=== PATIENT | male | born 1965 ===

== ENCOUNTER 2023-05-22 09:58 | Emergency (ER) | payer OTHER, SELFPAY ==
--- NOTE | ~2023-05-22 | CT_ITS ---
EXAMINATION: CT ABDOMEN AND PELVIS WITH CONTRAST CLINICAL INFORMATION: Right upper quadrant pain. COMPARISON: None available. TECHNIQUE: Multidetector volumetric images were obtained from the superior aspect of the liver through the pubic symphysis following administration 85 mL of Omnipaque 350 intravenous contrast. Sagittal and coronal reformatted images were obtained on the technologist's workstation. Oral contrast: No This CT examination was performed using dose optimization techniques as appropriate, variously including the following: *Automated exposure control *Adjustment of mA and/or kV according to patient size (this includes techniques or standardized protocols for targeted exams where dose is matched to indication/reason for exam; i.e. extremities or head) *Use of iterative reconstruction technique DLP: 866 mGy-cm FINDINGS: LUNG BASES: The visualized lung bases are unremarkable. LIVER, GALLBLADDER, AND BILIARY TREE: There are subcentimeter hypodensity right lobe the liver too small to characterize but likely a small cyst. There is no intrahepatic biliary duct dilatation. The gallbladder is unremarkable with no evidence of radiopaque gallstones, gallbladder wall thickening, or obvious pericholecystic inflammatory changes. PANCREAS: Mild infiltrative change at the head of the pancreas. SPLEEN: Unremarkable. ADRENAL GLANDS: Unremarkable. KIDNEYS AND URETERS: The kidneys are normal in size, shape, and attenuation. No hydronephrosis, hydroureter, or calculi seen. No perinephric stranding. BLADDER: Unremarkable. GASTROINTESTINAL TRACT: The small and large bowel are unremarkable. The appendix is unremarkable. ABDOMINAL WALL: There are small umbilical and supraumbilical hernias containing fat. LYMPH NODES: Normal. VASCULAR: Unremarkable. PELVIC VISCERA: Unremarkable. OSSEOUS STRUCTURES: There is diffuse mild to moderate thoracolumbar disc degenerative change. CT/CT abdomen pelvis w IV con IMPRESSION: Mild infiltrative change at the head of the pancreas. Consider a mild pancreatitis and less likely duodenitis. Small umbilical and supraumbilical hernias containing fat. Fleischner guidelines were followed.
--- NOTE | ~2023-05-22 | US_ITS ---
EXAMINATION: US ABDOMEN LIMITED CLINICAL INFORMATION: Right upper quadrant.. COMPARISON: CT abdomen pelvis earlier today at about 5:30 TECHNIQUE: Real-time imaging of the right upper quadrant abdominal viscera. FINDINGS: PANCREAS: Pancreas could not be seen as it was obscured by bowel LIVER: The liver is normal in size. The liver contour is normal. Parenchymal echogenicity is normal. No focal hepatic lesion. There is no intrahepatic biliary duct dilatation seen. GALLBLADDER: The gallbladder is physiologically distended without evidence of stones, sludge, polyps, wall thickening or pericholecystic fluid. COMMON BILE DUCT: Normal in caliber measuring 0.5 cm in diameter. RIGHT KIDNEY: Normal. No hydronephrosis. No renal calculi or focal parenchymal lesions. The kidney measures 11.3 cm in maximum dimension. FREE FLUID: None. US/US abdomen limited IMPRESSION: No abnormality is detected. The pancreas could not be visualized. The edematous pancreatic head with surrounding inflammation seen on the CT scan performed earlier today cannot be evaluated on this exam secondary to overlying bowel gas.
[2023-05-22 10:05] VITALS: BP 132/88; PULSE 77; RESP 18; TEMP 36.6; O2SAT 97; BMI 38.1
[2023-05-22 10:17] LABS: MANUAL DIFF FLAG NO
[2023-05-22 10:22] LABS: Basophils Percent Auto 0.3 % (0-2); Eosinophils Absolute Auto 0.1 X10*3/uL (0.0-0.4); Eosinophils Percent Auto 0.8 % (0-4); Hemoglobin 14.3 g/dl (14.0-18.0); Imm Gran Abs Auto 0.08 X10*3/uL (0.00-0.03); Imm Gran Pct Auto 0.7 % (0.0-0.4); Lymphocytes Absolute Auto 1.3 X10*3/uL (1.2-4.9); Lymphocytes Percent Auto 11.9 % (20-40); Mean Corpuscular HGB Conc 32.5 g/dl (31.0-36.0); Mean Corpuscular Hemoglobin 29.1 pg (27.0-33.0); Mean Corpuscular Volume 89.6 fL (80.0-98.0); Mean Platelet Volume 8.9 fL (9.4-12.4); Monocytes Absolute Auto 0.8 X10*3/uL (0.1-1.2); Monocytes Percent Auto 6.9 % (2-11); Neutrophils Absolute Auto 8.8 x10*3/uL (2.0-8.3); Neutrophils Percent Auto 79.4 % (45-73); Platelet Count 244 X10*3/uL (160-400); Red Blood Count 4.91 X10*6/uL (4.60-5.80); Red Cell Distribution Width 13.3 % (11.0-16.0); White Blood Count 11.1 X10*3/uL (4.8-10.8)
[2023-05-22 10:43] LABS: Alanine Aminotransferase 21 U/L (0-40); Alkaline Phosphatase 64 U/L (39-117); Anion Gap 11 (12-20); Aspartate Amino Transferase 20 U/L (5-37); Bilirubin Direct 0.1 mg/dL (0.0-0.5); Bilirubin Total 0.3 mg/dL (0.0-1.0); Blood Urea Nitrogen 12 mg/dL (9-16); Calcium 9.5 mg/dL (8.4-10.2); Carbon Dioxide 30 mmol/L (22-29); Chloride 103 mmol/L (96-108); Creatinine Clr Calc Pharmacy 107.1; Estimated Glomerular Filt Rate > 60; Glucose Random 96 mg/dL (60-115); Lipase 25 U/L (8-78); Potassium 3.7 mmol/L (3.3-5.1); Sodium 140 mmol/L (135-145); Total Protein 7.7 g/dL (6.5-8.0)
--- NOTE | 2023-05-22 16:06 | ED.ABDPAIN ---
HPI - Abdominal Pain General Chief Complaint: Abdominal Pain Stated Complaint: Abd pain Time Seen by Provider: 05/22/23 16:03 Source: patient Mode of arrival: ambulatory Limitations: no limitations History of Present Illness HPI narrative: Patient is a 58-year-old male presents emergency department for evaluation of abdominal pain. Onset was 3 days ago initially in the periumbilical region and it was intermittent in nature. Since yesterday evening it has increased in intensity, it is now localized to the right upper quadrant and is constant. He is prescribed oxycodone for chronic pain which has not alleviated the abdominal pain. There is no associated fevers, chills, nausea, vomiting, diarrhea, constipation. Denies chest pain, shortness of breath, difficulty breathing. Patient has a history of prostate cancer s/p prostatectomy in [address] [facility] at [facility] Dr. 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 Related Data Allergies Allergy/AdvReac Type Severity Reaction Status Date / Time No Known Allergies Allergy Verified 05/22/23 10:05 Review of Systems Review of Systems Constitutional : No Weight loss, No Fever, No Chills ENT/Mouth :? No sore throat, No Rhinorrhea Eyes: No Swelling, No Redness Cardiovascular : No Chest Pain, No SOB, No Edema Respiratory : No Cough, No Sputum, No Wheezing Gastrointestinal : No Nausea, no Vomiting, no Diarrhea, positive abdominal pain, No Hematochezia, No Melena Genitourinary : No Dysuria, No Urinary Frequency, No Hematuria, No Urgency? Musculoskeletal : No joint pain, No Myalgias, No Joint Swelling Skin : No Skin Lesions, No rash Neuro : No Weakness, No Numbness, No Dizziness, No Headache Psych : No Anxiety/Panic, No Depression Heme/Lymph: No Bruising, No Lymphadenopathy Endocrine : No Polyuria, No Polydipsia Yes all other systems are reviewed and are negative PMFSH Past Medical History Attestation statement: The following information was validated with the patient. Source: old records reviewed Social History Social History Smoked in Last 30 Days: No Use of substances other than those prescribed or required for medical reasons: No Advance Directives: No Advance Directives Information Provided: Yes Physical Exam ED Vital Signs: Vital Signs - 24 hr 05/22/23 10:05 05/22/23 16:31 05/22/23 19:00 Temperature 98 F 98.1 F 98.3 F Pulse Rate 77 79 80 Respiratory Rate 18 16 17 Blood Pressure 132/88 117/70 151/92 H Pulse Oximetry 97 94 97 Oxygen Delivery Method Room Air Room Air Room Air 05/22/23 20:41 05/22/23 20:46 Temperature 98.0 F Pulse Rate 78 Respiratory Rate 17 17 Blood Pressure 125/69 Pulse Oximetry 97 Oxygen Delivery Method Room Air BMI result Body Mass Index 38.1 Appearance: Alert.?Oriented to person, place and time. No acute distress.?Normal affect. Eyes: Pupils equal, round and reactive to light.? ENT: Pharynx normal.?? Neck: Normal inspection.? Neck supple.?? CVS: Heart sounds normal. Normal heart rate and rhythm.? Pulses normal.?? Respiratory: No respiratory distress.? Lung sounds clear to auscultation bilaterally?? Abdomen: Soft with mild right upper quadrant/ epigastric tenderness upon palpation. Negative Bishop sign. No rigidity. No guarding. Normoactive bowel sounds. No pulsatile mass.?? Skin: Skin warm and dry.? Normal skin color.?? Extremities: No lower extremity edema.? No calf ttp? Neuro: Moves all extremities spontaneously. Sensation intact bilaterally. . No focal neuro deficits. Ambulates with normal steady gait. Course Reevaluation(s) Reevaluation #1: CBC reveals a mild leukocytosis 11.1, patient did not CMP is overall unremarkable, lipase is within normal limits. Urinalysis without signs of infection or microscopic hematuria. CT of the abdomen and pelvis indicating mild infiltrative changes at the head of the pancreas, likely a mild pancreatitis. Denies EtOH usage. At this time will obtain ultrasound for further evaluation of biliary etiology in addition to lipid panel a potential hypertriglyceridemia. Pain has resolved with IV ketorolac. Time: 18:51 Reevaluation #2: Ultrasound revealing no acute abnormality, pancreas not well visualized due to overlying bowel gas. LFTs are normal, lipase is within normal limits, triglycerides are normal. Pain has resolved at this time. He is tolerating oral intake. At this time feel it is appropriate for discharge, mild pancreatitis, outpatient follow-up with primary care provider, reviewed worrisome signs and symptoms that would warrant re-evaluation in the emergency department. All questions were answered. We did discuss potential adverse reaction from medication including, Mounjaro. Reviewed this case with ED attending Dr. Márquez who agrees with plan of care for discharge in outpatient follow-up at this time Time: 21:55 Medical Decision Making Medical Decision Making [facility] Narrative: Patient is a 58-year-old male with past medical history of hypertension, hyperlipidemia, obesity, prostate cancer as per HPI, presenting to emergency department for evaluation of abdominal pain. At the time of my examination he is overall well-appearing. He is nontoxic, afebrile. Abdominal examination is notable for mild tenderness upon palpation in the right upper quadrant, does not appear consistent at this time with acute abdomen. Will obtain CBC to evaluate for leukocytosis/ anemia, CMP and lipase to evaluate for abnormal electrolytes /abnormal renal function/ abnormal hepatic/biliary function, CT AP, and Urinalysis. Will trial Toradol for pain at this time. Differential Diagnosis Differential Diagnoses: The differential diagnosis associated with the presentation includes (Gastritis, GERD, PUD, cholecystitis, cholelithiasis, pancreatitis, obstruction, diverticulitis, appendicitis) Admission/Observation Consideration of admission/observation: Escalation of care including admission/observation considered (I considered admission for abdominal pain, see course narrative for further detail) Lab Data [facility] Lab Attestation statement: I reviewed the patient's lab results. (See course narrative for further detail) 05/22/23 10:13 05/22/23 10:13 Labs: Lab Results 05/22/23 05/22/23 05/22/23 Range/Units 10:13 10:13 16:04 WBC 11.1 H (4.8-10.8) X10*3/uL RBC 4.91 (4.60-5.80) X10*6/uL Hgb 14.3 (14.0-18.0) g/dl Hct 44.0 (42.0-52.0) % MCV 89.6 (80.0-98.0) fL MCH 29.1 (27.0-33.0) pg MCHC 32.5 (31.0-36.0) g/dl RDW 13.3 (11.0-16.0) % Plt Count 244 (160-400) X10*3/uL MPV 8.9 L (9.4-12.4) fL Immature Gran % (Auto) 0.7 H (0.0-0.4) % Neut % (Auto) 79.4 H (45-73) % Lymph % (Auto) 11.9 L (20-40) % [place] % (Auto) 6.9 (2-11) % Eos % (Auto) 0.8 (0-4) % Baso % (Auto) 0.3 (0-2) % Lymph # (Auto) 1.3 (1.2-4.9) X10*3/uL [place] # (Auto) 0.8 (0.1-1.2) X10*3/uL Eos # (Auto) 0.1 (0.0-0.4) X10*3/uL Baso # (Auto) 0.0 (0.0-0.2) X10*3/uL Abs Immat Gran (auto) 0.08 H (0.00-0.03) X10*3/uL Absolute Neuts (auto) 8.8 H (2.0-8.3) x10*3/uL Absolute Nucleated RBC 0.000 (0.0-0.012) X10*3/uL Nucleated RBC % (auto) 0.0 (0.0-0.2) /100WBC Sodium 140 (135-145) mmol/L Potassium 3.7 (3.3-5.1) mmol/L Chloride 103 (96-108) mmol/L Carbon Dioxide 30 H (22-29) mmol/L Anion Gap 11 L (12-20) BUN 12 (9-16) mg/dL Creatinine 0.93 (0.5-1.4) mg/dL Estim Creat Clear Calc 107.1 Estimated GFR > 60 Random Glucose 96 (60-115) mg/dL Calcium 9.5 (8.4-10.2) mg/dL Total Bilirubin 0.3 (0.0-1.0) mg/dL Direct Bilirubin 0.1 (0.0-0.5) mg/dL AST 20 (5-37) U/L ALT 21 (0-40) U/L Alkaline Phosphatase 64 (39-117) U/L Total Protein 7.7 (6.5-8.0) g/dL Albumin 4.0 (3.5-5.0) g/dL Triglycerides 70 mg/dL Cholesterol 169 mg/dL LDL Cholesterol, Calc 106 mg/dl HDL Cholesterol 49 mg/dL Lipase 25 (8-78) U/L Urine Color Yellow Urine Appearance Clear Urine pH 7.5 (5.0-9.0) Ur Specific [place] 1.015 (1.005-1.025) Urine Protein Negative (Neg-Trace) mg/dL Urine Glucose (UA) Negative (Negative) mg/dL Urine Ketones Negative (Negative) mg/dL Urine Blood Negative (Negative) Urine Nitrite Negative (Negative) Ur Leukocyte Esterase Negative (Negative) Radiology Impression Discussion of test interpretation with radiology: I have reviewed the radiologist's reading. Radiologist Impression: CT/CT abdomen pelvis w IV con IMPRESSION: Mild infiltrative change at the head of the pancreas. Consider a mild pancreatitis and less likely duodenitis. ? Small umbilical and supraumbilical hernias containing fat.? XR/XR chest 2V IMPRESSION: No active cardiopulmonary disease. US/US abdomen limited IMPRESSION: No abnormality is detected. The pancreas could not be visualized. The edematous pancreatic head with surrounding inflammation seen on the CT scan performed earlier today cannot be evaluated on this exam secondary to overlying bowel gas. Independent Historian Clinical information obtained from an independent historian. History obtained from or confirmed by: Spouse (Patient's who confirms history) Prescription Management I considered prescription management with: Pain Medication (OTC acetaminophen/ibuprofen) and Other (Considered an antiemetic, patient declines) Chronic Conditions Patient?s care impacted by: Cancer Medications Administered Discontinued Medications Generic Name Dose Route Start Last Admin Trade Name Freq PRN Reason Stop Dose Admin Sodium Chloride 1,000 mls @ 999 mls/hr 05/22/23 16:30 05/22/23 19:38 Ns IV 05/22/23 17:30 Infused .Q1H1M GENE Infusion Iohexol 85 ml 05/22/23 17:34 05/22/23 17:34 Iohexol 350 Mg/Ml 100 Ml Infus..Btl IV 05/22/23 17:35 85 ml ONCE ONE Administration Ketorolac Tromethamine 30 mg 05/22/23 16:29 05/22/23 16:52 Ketorolac Tromethamine 30 Mg/Ml Vial IVPUSH 05/22/23 16:30 30 mg ONCE ONE Administration Discharge Plan Discharge Clinical Impression: Pancreatitis Patient Disposition: Home, Self-Care Instructions: Pancreatitis (ED) Additional Instructions: As discussed, your blood work today was overall normal. Your CT imaging is concerning for mild pancreatitis. Please be sure to stay well hydrated, You can take ibuprofen 200 mg, 3 tablets (600mg) every 6-8 hours as needed for pain, in addition to Tylenol 500 mg, 2 tablets (1,000mg) every 4-6 hours as needed for pain, but not to exceed 3 doses daily (3,000mg).? Contact your primary care provider to arrange for a follow-up visit within 1-3 days. Return back to emergency department with any new or worsening symptoms or concerns. Referrals: Physician,Unknown J [Primary Care Provider] - Interventions: ED Discharge Assessment Last Done: 05/22/23 22:03 Discharge Date/Time: 05/22/23 22:04
[2023-05-22 16:14] LABS: Appearance Urine Clear; Color Urine Yellow; Glucose Urine UA Negative (Negative); Leukocyte Esterase Urine Negative (Negative); Nitrite Urine Negative (Negative); PH 7.5 (5.0-9.0); Specific Gravity - Urine 1.015 (1.005-1.025); Urine Blood Negative (Negative); Urine Ketones Negative (Negative); Urine Protein Negative (Neg-Trace)
[2023-05-22 16:31] VITALS: BP 117/70; PULSE 79; RESP 16; TEMP 36.7; O2SAT 94
--- NOTE | 2023-05-22 16:38 | PC.NURSE ---
Pt stated he started having a slight pain around his belly button off and on. But last night around 1AM it moved to the RUQ and kristal to 10/10. Call cedeño with in reach. lights dimmed.
[2023-05-22] MEDS: 0.9 % Sodium Chloride 1,000 ML 999 ML IV (16:51)
[2023-05-22] MEDS: Ketorolac Tromethamine 30 MG/ML VIAL IVPUSH (16:52)
[2023-05-22] MEDS: iohexoL 350 MG/ML 100 ML INFUS..BTL 85 ML IV (17:34)
[2023-05-22 19:00] VITALS: BP 151/92; PULSE 80; RESP 17; TEMP 36.8; O2SAT 97
[2023-05-22 20:41] VITALS: RESP 17
[2023-05-22 20:46] VITALS: BP 125/69; PULSE 78; RESP 17; TEMP 36.7; O2SAT 97
[2023-05-22 21:29] LABS: Cholesterol 169 mg/dL; HDL Cholesterol 49 mg/dL; LDL Cholesterol Calculated 106 mg/dl; Triglycerides 70 mg/dL
== END 2023-05-22 22:04 | disposition home or self-care (01) ==
PROVIDERS: Nurse Practitioner Family; Emergency Provider Student in an Organized Health Care Education/Training Program
DX: K85.90 Acute pancreatitis without necrosis or infection, unspecified (principal); R10.11 Right upper quadrant pain; I10 Essential (primary) hypertension; E78.5 Hyperlipidemia, unspecified; G89.4 Chronic pain syndrome; Z79.891 Long term (current) use of opiate analgesic; C61 Malignant neoplasm of prostate; C79.89 Secondary malignant neoplasm of other specified sites; C79.51 Secondary malignant neoplasm of bone; Z79.890 Hormone replacement therapy; D72.829 Elevated white blood cell count, unspecified
CPT/HCPCS: 36415; 74177; 76705; 80048; 80061; 80076; 81003; 83690; 85025; 96361; 96374; 99284; 99285; J1885; Q9967

== ENCOUNTER 2023-07-16 13:49 | Emergency (ER) | payer OTHER, MEDICARE, SELFPAY ==
[2023-07-16 14:49] VITALS: BP 171/78; PULSE 76; RESP 16; TEMP 36; O2SAT 95; BMI 38.6
--- NOTE | 2023-07-16 14:49 | ED.GENADULT ---
HPI - General Adult General Chief complaint: Extremity Problem Stated complaint: l leg pain Time Seen by Provider: 07/16/23 18:37 Related Data Previous Rx's Medication Instructions Recorded oxycodone 5 mg capsule 5 mg PO Q8H PRN pain 3 days #9 caps 07/16/23 Allergies Allergy/AdvReac Type Severity Reaction Status Date / Time No Known Allergies Allergy Verified 07/16/23 14:49 PMFSH Social History Social History Smoked in Last 30 Days: No Use of substances other than those prescribed or required for medical reasons: No Advance Directives: Yes Advance Directives Information Provided: No Advance Directives on File: No Physical Exam ED Vital Signs: Vital Signs - 24 hr 07/16/23 14:49 07/16/23 19:48 Temperature 96.8 F 97.2 F Pulse Rate 76 73 Respiratory Rate 16 16 Blood Pressure 171/78 H 152/89 H Pulse Oximetry 95 97 Oxygen Delivery Method Room Air Room Air BMI result Body Mass Index 38.6 Course Course Course Narrative: RME performed by Dodie Monk PA-C. Patient is a 58 year old assigned male at presenting to the emergency department with low back pain that radiates down his left leg. Patient has a history of recent cancer diagnosis for which he starts radiation tomorrow. Patient states that he was told then he had a spot on his left hip and in his lumbar spine. Labs ordered. Patient placed back in the waiting room pending room availability and results. Patient dispositioned by Dr. Almanza. Please refer to Dr. Almanza's note from 07/16/2023 for more information. Medications Administered Discontinued Medications Generic Name Dose Route Start Last Admin Trade Name Freq PRN Reason Stop Dose Admin Dexamethasone Sodium Phosphate 6 mg 07/16/23 19:22 07/16/23 19:52 Dexamethasone Sod Phosphate 4 Mg/Ml Vial IVPUSH 07/16/23 19:23 6 mg ONCE ONE Administration Medical Decision Making Lab Data 07/16/23 15:37 07/16/23 15:37 Labs: Lab Results 07/16/23 Range/Units 15:37 WBC 8.2 (4.8-10.8) X10*3/uL RBC 4.85 (4.60-5.80) X10*6/uL Hgb 14.1 (14.0-18.0) g/dl Hct 43.0 (42.0-52.0) % MCV 88.7 (80.0-98.0) fL MCH 29.1 (27.0-33.0) pg MCHC 32.8 (31.0-36.0) g/dl RDW 13.6 (11.0-16.0) % Plt Count 251 (160-400) X10*3/uL MPV 8.9 L (9.4-12.4) fL Immature Gran % (Auto) 0.5 H (0.0-0.4) % Neut % (Auto) 71.9 (45-73) % Lymph % (Auto) 18.3 L (20-40) % [place] % (Auto) 7.7 (2-11) % Eos % (Auto) 1.2 (0-4) % Baso % (Auto) 0.4 (0-2) % Lymph # (Auto) 1.5 (1.2-4.9) X10*3/uL [place] # (Auto) 0.6 (0.1-1.2) X10*3/uL Eos # (Auto) 0.1 (0.0-0.4) X10*3/uL Baso # (Auto) 0.0 (0.0-0.2) X10*3/uL Abs Immat Gran (auto) 0.04 H (0.00-0.03) X10*3/uL Absolute Neuts (auto) 5.9 (2.0-8.3) x10*3/uL Absolute Nucleated RBC 0.000 (0.0-0.012) X10*3/uL Nucleated RBC % (auto) 0.0 (0.0-0.2) /100WBC Sodium 140 (135-145) mmol/L Potassium 4.0 (3.3-5.1) mmol/L Chloride 104 (96-108) mmol/L Carbon Dioxide 25 (22-29) mmol/L Anion Gap 15 (12-20) BUN 14 (9-16) mg/dL Creatinine 0.82 (0.5-1.4) mg/dL Estim Creat Clear Calc 122.4 Estimated GFR > 60 Random Glucose 88 (60-115) mg/dL Calcium 10.0 (8.4-10.2) mg/dL Magnesium 2.3 (1.6-2.6) mg/dL Total Bilirubin 0.2 (0.0-1.0) mg/dL AST 23 (5-37) U/L ALT 21 (0-40) U/L Alkaline Phosphatase 62 (39-117) U/L Total Protein 7.3 (6.5-8.0) g/dL Albumin 4.1 (3.5-5.0) g/dL Discharge Plan Discharge Clinical Impression: Back pain Patient Disposition: Home, Self-Care Instructions: Back Pain (ED) Additional Instructions: Back pain and left leg numbness due to prostate metastases to your lumbar spine. Recommend to keep your appointment with your oncologist for radiation tomorrow. Return to the ED immediately for urinary/bowel incontinence, paralysis of lower extremities, fever, chills, inability to walk, severe back pain or any other concerning symptoms. Continue taking your oxycodone pain meds at home for pain. Prescriptions: New oxycodone 5 mg capsule 5 mg PO Q8H PRN (Reason: pain) 3 Days Qty: 9 0RF Rx Instructions: Partial Fill upon patient request. Interventions: ED Discharge Assessment Last Done: 07/16/23 20:06 Discharge Date/Time: 07/16/23 20:06 Print Language: Nigerien
--- NOTE | 2023-07-16 19:23 | ED.GENADULT ---
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 Patient was referred to the ED by oncologist to evaluate for pinched nerve. Patient starting radiation tomorrow for prostate CA and prosate CA going to the spine.. Patient denies any urinary/bowel incontinence. Patient states any fever or chills. Patient denies any abdominal pain, nausea, dysuria, hematuria, or vomiting. Related Data Previous Rx's Medication Instructions Recorded oxycodone 5 mg capsule 5 mg PO Q8H PRN pain 3 days #9 caps 07/16/23 Allergies Allergy/AdvReac Type Severity Reaction Status Date / Time No Known Allergies Allergy Verified 07/16/23 14:49 Review of Systems Review of Systems: Left leg numbness. Back pain Yes all other systems are reviewed and are negative [facility] Social History Social History Smoked in Last 30 Days: No Use of substances other than those prescribed or required for medical reasons: No Advance Directives: Yes Advance Directives Information Provided: No Advance Directives on File: No Physical Exam ED Vital Signs: Vital Signs - 24 hr 07/16/23 14:49 Temperature 96.8 F Pulse Rate 76 Respiratory Rate 16 Blood Pressure 171/78 H Pulse Oximetry 95 Oxygen Delivery Method Room Air BMI result Body Mass Index 38.6 Const General: cooperative, healthy appearing, comfortable, no acute distress, well developed, alert and awake Orientation/consciousness: oriented to person, oriented to place, oriented to time and patient oriented x3 HENMT Head: Yes normal to inspection, Yes No palpable skull fracture present, Yes normocephalic, Yes atraumatic and No abrasion Eyes General: appearance normal, both eyes and all related structures Neck Neck: Yes normal visual inspection, Yes full ROM, Yes no lymphadenopathy, Yes no meningeal signs, Yes trachea midline, Yes supple, No anterior neck swelling and No tender Chest Chest palpation & inspection: normal inspection of the chest and normal palpation of entire chest wall Resp Effort & Inspection: normal respiratory effort and able to speak in complete sentences Cardio Jugular venous distension: no JVD Heart sounds: S1 normal heart sound present and S2 normal heart sound present GI Inspection: Yes normal to inspection and No abdominal wall ecchymosis Palpation (GI): Soft to palpation, not firm, nontender, no guarding and not rigid General: No CVA tenderness and Yes no CVA tenderness Back/Spine/Pelvis Back: no CVA tenderness, No CVA tenderness and No back tenderness Skin General skin exam: no rashes or lesions noted and elasticity normal Neuro General: oriented to person, oriented to place, oriented to time, patient oriented x3, gait normal, tone normal, moves all extremities, Normal light touch and pain sensation, no meningeal signs, no focal motor deficits, CN's II-XI intact bilaterally and normal sensation to monofilament Extrem Other: Bilateral lower extremities negative for swelling, pitting edema, calf tenderness, or ecchymosis. Bilateral Babinski test negative. Neuro exam bilaterally equal. Bilateral complete range of motion of lower extremities. Strength of right lower extremity 5+. Strength of left lower extremity 4.5. Rectal exam shows great strength. Negative for saddle anesthesia. General: Yes normal to inspection and Yes full ROM Psych Appearance: grossly normal, well kempt and not disheveled Medications Administered Discontinued Medications Generic Name Dose Route Start Last Admin Trade Name Freq PRN Reason Stop Dose Admin Dexamethasone Sodium Phosphate 6 mg 07/16/23 19:22 07/16/23 19:52 Dexamethasone Sod Phosphate 4 Mg/Ml Vial IVPUSH 07/16/23 19:23 6 mg ONCE ONE Administration Medical Decision Making Medical Decision Making [facility] Narrative: 58-year-old male presents to ED for back pain left leg numbness. Patient history of prostate cancer Mets to lumbar spine. Patient start radiation tomorrow. Physical exam negative for Babinski sign. Negative for saddle anesthesia. Patient has good rectal tone. Not suspecting stroke. Negative facial droop slurred speech, paralysis of extremities, pronator drift, or loss of vision. Bilateral lower extremity strength nearly equal. Motor/neuro/vascular exam intact. Not concerned for cauda equinus syndrome or spinal epidural abscess. Symptoms most likely due to cancer of the spine. Case discussed with Dr. Almanza who agrees with plan and does not recommend any further imaging. Patient was give 1 dose of Decadron. No indication for MRI. Differential Diagnosis Differential Diagnoses: The differential diagnosis associated with the presentation includes (Prostate Cancer to the spine. caudina equina syndrome, spinal epidural abscess) Admission/Observation Consideration of admission/observation: Escalation of care including admission/observation considered Lab Data MDM Lab Attestation statement: I reviewed the patient's lab results. 07/16/23 15:37 07/16/23 15:37 Labs: Lab Results 07/16/23 Range/Units 15:37 WBC 8.2 (4.8-10.8) X10*3/uL RBC 4.85 (4.60-5.80) X10*6/uL Hgb 14.1 (14.0-18.0) g/dl Hct 43.0 (42.0-52.0) % MCV 88.7 (80.0-98.0) fL MCH 29.1 (27.0-33.0) pg MCHC 32.8 (31.0-36.0) g/dl RDW 13.6 (11.0-16.0) % Plt Count 251 (160-400) X10*3/uL MPV 8.9 L (9.4-12.4) fL Immature Gran % (Auto) 0.5 H (0.0-0.4) % Neut % (Auto) 71.9 (45-73) % Lymph % (Auto) 18.3 L (20-40) % Navarro % (Auto) 7.7 (2-11) % Eos % (Auto) 1.2 (0-4) % Baso % (Auto) 0.4 (0-2) % Lymph # (Auto) 1.5 (1.2-4.9) X10*3/uL Navarro # (Auto) 0.6 (0.1-1.2) X10*3/uL Eos # (Auto) 0.1 (0.0-0.4) X10*3/uL Baso # (Auto) 0.0 (0.0-0.2) X10*3/uL Abs Immat Gran (auto) 0.04 H (0.00-0.03) X10*3/uL Absolute Neuts (auto) 5.9 (2.0-8.3) x10*3/uL Absolute Nucleated RBC 0.000 (0.0-0.012) X10*3/uL Nucleated RBC % (auto) 0.0 (0.0-0.2) /100WBC Sodium 140 (135-145) mmol/L Potassium 4.0 (3.3-5.1) mmol/L Chloride 104 (96-108) mmol/L Carbon Dioxide 25 (22-29) mmol/L Anion Gap 15 (12-20) BUN 14 (9-16) mg/dL Creatinine 0.82 (0.5-1.4) mg/dL Estim Creat Clear Calc 122.4 Estimated GFR > 60 Random Glucose 88 (60-115) mg/dL Calcium 10.0 (8.4-10.2) mg/dL Magnesium 2.3 (1.6-2.6) mg/dL Total Bilirubin 0.2 (0.0-1.0) mg/dL AST 23 (5-37) U/L ALT 21 (0-40) U/L Alkaline Phosphatase 62 (39-117) U/L Total Protein 7.3 (6.5-8.0) g/dL Albumin 4.1 (3.5-5.0) g/dL External Record Review External record reviewed: Other (prior ED visit) Chronic Conditions Patient?s care impacted by: Cancer (prostate) Discharge Plan Discharge Clinical Impression: Back pain Patient Disposition: Home, Self-Care Instructions: Back Pain (ED) Additional Instructions: Back pain and left leg numbness due to prostate metastases to your lumbar spine. Recommend to keep your appointment with your oncologist for radiation tomorrow. Return to the ED immediately for urinary/bowel incontinence, paralysis of lower extremities, fever, chills, inability to walk, severe back pain or any other concerning symptoms. Continue taking your oxycodone pain meds at home for pain. Prescriptions: New oxycodone 5 mg capsule 5 mg PO Q8H PRN (Reason: pain) 3 Days Qty: 9 0RF Rx Instructions: Partial Fill upon patient request. Interventions: ED Discharge Assessment Last Done: 07/16/23 20:06 Discharge Date/Time: 07/16/23 20:06 Print Language: Urdu
[2023-07-16 19:48] VITALS: BP 152/89; PULSE 73; RESP 16; TEMP 36.2; O2SAT 97
--- NOTE | 2023-07-16 20:01 | PC.NURSE ---
Pt a&o, no sob or chest pain, medicated per mar, Reviewed discharge instructions with pt, pt verbalized understanding.
--- NOTE | 2023-07-16 20:05 | PC.NURSE ---
At discharge pt neuro intact and pt ambulating with a steady gait.
== END 2023-07-16 20:06 | disposition home or self-care (01) ==
PROVIDERS: Emergency Provider Internal Medicine; PCP Internal Medicine
DX: G89.3 Neoplasm related pain (acute) (chronic) (principal); C61 Malignant neoplasm of prostate; C79.51 Secondary malignant neoplasm of bone; M54.50 Low back pain, unspecified; M79.605 Pain in left leg
CPT/HCPCS: 36415; 80053; 83735; 85025; 99283; 99284; J1100

== ENCOUNTER 2023-07-28 15:04 | Emergency (ER) | payer OTHER, MEDICARE, SELFPAY ==
--- NOTE | ~2023-07-28 | XR_ITS ---
EXAMINATION: XR LUMBOSACRAL SPINE CLINICAL INFORMATION: Pain. COMPARISON: CT abdomen/pelvis 05/22/2023. TECHNIQUE: Three views of the lumbosacral spine. FINDINGS: No evidence of acute compression deformity or traumatic subluxation. Severe intervertebral disc height loss at L5-S1. Moderate intervertebral disc height loss at L4-L5. Moderate facet arthropathy spanning L4-S1 with neural foraminal encroachment and central canal stenosis. SI joints are symmetric. Pubic symphysis is maintained. No significant paraspinal soft tissue abnormality. XR/XR lumbar spine 2-3V IMPRESSION: 1. No acute compression deformity or malalignment. 2. Moderate to severe lower lumbar spondylosis, more prominent at L5-S1.
[2023-07-28 15:43] VITALS: BP 150/94; PULSE 89; RESP 18; TEMP 36.8; O2SAT 93; BMI 55.6
[2023-07-28 17:28] VITALS: BP 180/99; PULSE 78; RESP 20; TEMP 35.9; O2SAT 94
--- NOTE | 2023-07-28 17:28 | ED_ITS ---
HPI - General Adult General Chief complaint: Extremity Injury, Lower Stated complaint: Numbness & pain in left leg Time Seen by Provider: 07/28/23 20:39 Source: patient, RN notes reviewed and old records reviewed Mode of arrival: ambulatory Limitations: no limitations History of Present Illness HPI narrative: 58-year-old male with past medical history significant for chronic back pain presents for evaluation of left lower back pain that radiates to his right leg patient reports he has previous lumbar surgery performed at [facility] years ago he reports for last few weeks he has had worsening left lower back pain which is chronic but now he has pain radiating to his left leg with associated numbness and tingling he reports that the numbness is mostly to his left medial thigh going down to about the front of his left knee the patient is able to ambulate but feels that his left leg is slightly weaker than usual he denies any bladder or bowel incontinence he was seen here 8 days ago for lower back pain and was given a dose of dexamethasone 6 mg IV and then discharged with oxycodone Related Data Previous Rx's Medication Instructions Recorded oxycodone 5 mg capsule 5 mg PO Q8H PRN pain 3 days #9 caps 07/16/23 cyclobenzaprine 10 mg tablet 10 mg PO TID PRN muscle spasm #15 07/28/23 tabs dexamethasone 4 mg tablet 4 mg PO BID #6 tabs 07/28/23 Allergies Allergy/AdvReac Type Severity Reaction Status Date / Time No Known Allergies Allergy Verified 07/28/23 15:48 Review of Systems 2 Constitutional: Constitutional: Denies chills and Denies fever(s) Eyes: Eyes: Denies blurry vision Cardiovascular: Cardiovascular: Denies chest pain and Denies dyspnea Respiratory: Respiratory: Denies cough and Denies dyspnea Gastrointestinal: Gastrointestinal: Denies abdominal pain, Denies nausea and Denies vomiting Musculoskeletal: Musculoskeletal: Reports back pain, Reports numbness, Reports radiating pain into limb and Reports tingling Neurologic: Reports numbness and Reports tingling PMFSH Social History Social History Smoked in Last 30 Days: No Use of substances other than those prescribed or required for medical reasons: No Advance Directives: No Advance Directives Information Provided: Yes Physical Exam ED Vital Signs: Vital Signs - 24 hr 07/28/23 15:43 07/28/23 17:28 07/28/23 17:48 Temperature 98.2 F 96.7 F L 98.2 F Pulse Rate 89 78 75 Respiratory Rate 18 20 18 Blood Pressure 150/94 H 180/99 H 138/81 Pulse Oximetry 93 94 94 Oxygen Delivery Method Room Air Room Air Room Air 07/28/23 20:07 Temperature 97.4 F Pulse Rate 69 Respiratory Rate 16 Blood Pressure 137/81 Pulse Oximetry 96 Oxygen Delivery Method Room Air BMI result Body Mass Index 55.6 Const General: healthy appearing, comfortable, no acute distress, alert and awake Nutritional Appearance: well nourished Orientation/consciousness: patient oriented x3 HENMT Head: Yes normocephalic and Yes atraumatic Eyes Eyelids: Yes eyelids normal Conjunctivae: conjunctivae normal Sclerae: sclerae normal Corneas: corneas normal Pupils: Equal, round and reactive pupils present EOM: EOMs intact bilaterally Neck Neck: Yes full ROM Resp Effort & Inspection: normal respiratory effort, able to speak in complete sentences and not labored Cardio Rate: regular rate Rhythm: regular rhythm GI Inspection: No distended Palpation (GI): Soft to palpation, not firm, nontender, no guarding and not rigid Skin General skin exam: elasticity normal Neuro General: patient oriented x3 Cranial nerves: Yes Equal, round and reactive pupils present and Yes Bilaterally intact EOM present Cognition (Neuro): normal cognition Motor exam (neuro): 5/5 motor strength present throughout, Normal motor muscle tone present throughout and Motor abnormalities not present Extrem Other: Moving all extremities well without any obvious deformities Course Course Course Narrative: This is a rapid medical exam: Additional HPI, ROS, PE not included below will be deferred to primary provider. Patient is a 58-year-old male with history of prostate cancer, recently started treatment with radiation presenting to the emergency department with complaint of left leg pain and numbness for several weeks. History of surgery on L1-5 years ago. Was treated with a course of steroids which he states did not improve symptoms. Reports metastases on hip and L5 but reports he finished the radiation to these areas already. Was seen in this ED on 07/16 and states numbness began a few days prior to that. Reports little change with medication prescribed here. Medical Decision Making Medical Decision Making MDM Narrative: 58-year-old male with past medical history significant for chronic back pain presents for evaluation of 1 month of worsening back pain. He reports numbness and tingling but denies any warning signs for cauda equina syndrome. there is no bladder or bowel incontinence, the patient able to ambulate without any difficulty. There is no weakness on exam. I did obtain an x-ray of lumbar spine which shows moderate to severe spondylosis of the lumbar region. Will treat the patient with 3 days worth of dexamethasone 4 mg b.i.d.. He reports that he has pain medication at home but will try Flexeril in addition for muscle relaxers. Was encouraged to follow-up with Neurosurgery. Differential Diagnosis Differential Diagnoses: The differential diagnosis associated with the presentation includes Acute on chronic back pain muscle strain Spondylosis Radiculopathy Sciatica Cauda equina syndrome less likely Lab Data MDM Lab Attestation statement: I reviewed the patient's lab results. no leukocytosis, no anemia. No electrolyte abnormalities. 07/28/23 20:19 07/28/23 20:19 Labs: Lab Results 07/28/23 Range/Units 20:19 WBC 7.1 (4.8-10.8) X10*3/uL RBC 5.02 (4.60-5.80) X10*6/uL Hgb 14.8 (14.0-18.0) g/dl Hct 44.5 (42.0-52.0) % MCV 88.6 (80.0-98.0) fL MCH 29.5 (27.0-33.0) pg MCHC 33.3 (31.0-36.0) g/dl RDW 13.2 (11.0-16.0) % Plt Count 247 (160-400) X10*3/uL MPV 8.7 L (9.4-12.4) fL Absolute Nucleated RBC 0.000 (0.0-0.012) X10*3/uL Nucleated RBC % (auto) 0.0 (0.0-0.2) /100WBC Sodium 141 (135-145) mmol/L Potassium 3.5 (3.3-5.1) mmol/L Chloride 101 (96-108) mmol/L Carbon Dioxide 28 (22-29) mmol/L Anion Gap 16 (12-20) BUN 11 (9-16) mg/dL Creatinine 0.82 (0.5-1.4) mg/dL Estim Creat Clear Calc 97.6 Estimated GFR > 60 Random Glucose 92 (60-115) mg/dL Calcium 10.4 H (8.4-10.2) mg/dL Total Bilirubin 0.3 (0.0-1.0) mg/dL AST 22 (5-37) U/L ALT 23 (0-40) U/L Alkaline Phosphatase 57 (39-117) U/L Total Protein 7.5 (6.5-8.0) g/dL Albumin 4.2 (3.5-5.0) g/dL Independent Interpretation I performed an independent interpretation of an: Plain X-Ray ( no obvious compression deformity) Radiology Impression Discussion of test interpretation with radiology: I have reviewed the radiologist's reading. ( Moderate to severe spondylosis most notably L5-S1) Discharge Plan Discharge Clinical Impression: Acute exacerbation of chronic low back pain Patient Disposition: Home, Self-Care Instructions: Acute Low Back Pain (ED) Additional Instructions: the use ibuprofen/Tylenol for pain. He may also use your home oxycodone. Take dexamethasone twice daily for the next 3 days. Use Flexeril as needed for muscle spasms you should follow-up with Neurosurgery. You may benefit from an outpatient MRI Prescriptions: New cyclobenzaprine 10 mg tablet 10 mg PO TID PRN (Reason: muscle spasm) Qty: 15 0RF dexamethasone 4 mg tablet 4 mg PO BID Qty: 6 0RF No Action oxycodone 5 mg capsule 5 mg PO Q8H PRN (Reason: pain) 3 Days Qty: 9 0RF Rx Instructions: Partial Fill upon patient request. Referrals: Juan José Astorga MD, PhD [Physician] - (acute on chronic back pain)
[2023-07-28 17:48] VITALS: BP 138/81; PULSE 75; RESP 18; TEMP 36.8; O2SAT 94
[2023-07-28 20:07] VITALS: BP 137/81; PULSE 69; RESP 16; TEMP 36.3; O2SAT 96
[2023-07-28 20:28] LABS: Hematocrit 44.5 % (42.0-52.0); Hemoglobin 14.8 g/dl (14.0-18.0); Mean Corpuscular HGB Conc 33.3 g/dl (31.0-36.0); Mean Corpuscular Hemoglobin 29.5 pg (27.0-33.0); Mean Corpuscular Volume 88.6 fL (80.0-98.0); Mean Platelet Volume 8.7 fL (9.4-12.4); Platelet Count 247 X10*3/uL (160-400); Red Blood Count 5.02 X10*6/uL (4.60-5.80); Red Cell Distribution Width 13.2 % (11.0-16.0); White Blood Count 7.1 X10*3/uL (4.8-10.8)
[2023-07-28 20:41] LABS: Alanine Aminotransferase 23 U/L (0-40); Albumin Level 4.2 g/dL (3.5-5.0); Alkaline Phosphatase 57 U/L (39-117); Anion Gap 16 (12-20); Aspartate Amino Transferase 22 U/L (5-37); Bilirubin Total 0.3 mg/dL (0.0-1.0); Blood Urea Nitrogen 11 mg/dL (9-16); Calcium 10.4 mg/dL (8.4-10.2); Carbon Dioxide 28 mmol/L (22-29); Chloride 101 mmol/L (96-108); Creatinine Clr Calc Pharmacy 97.6; Estimated Glomerular Filt Rate > 60; Glucose Random 92 mg/dL (60-115); Potassium 3.5 mmol/L (3.3-5.1); Sodium 141 mmol/L (135-145); Total Protein 7.5 g/dL (6.5-8.0)
[2023-07-28] MEDS: dexAMETHasone 4 MG TABLET PO (22:07)
[2023-07-28 22:10] VITALS: BP 139/82; PULSE 75; RESP 17; TEMP 36.8; O2SAT 99
== END 2023-07-28 22:11 | disposition home or self-care (01) ==
PROVIDERS: Emergency Provider Emergency Medicine
DX: M54.50 Low back pain, unspecified (principal); G89.29 Other chronic pain
CPT/HCPCS: 36415; 72100; 80053; 85027; 99283; 99284; J8540